=== PATIENT | male | born 1970 | race Native Hawaiian/Other Pacific Islander ===

== ENCOUNTER 2016-11-07 11:33 | Emergency (ER) | payer BC ==
[~2016-11-07] VITALS: Ht 177.8 cm; Wt 97.5 kg
[2016-11-07 11:43] VITALS: TEMP 97.8
[2016-11-07] MEDS ORDERED: PROTONIX20 MG PO (11:47)
[2016-11-07] MEDS ORDERED: BYSTOLIC2.5 MG PO (11:49)
[2016-11-07 12:17] LABS: PLATELET COUNT 272 K/uL (142-355)
[2016-11-07 12:26] LABS: POTASSIUM 3.9 mmol/L (3.6-5.2)
[2016-11-07 12:34] LABS: PARTIAL THROMBOPLASTIN TIME 23.8 SECONDS (24.5-33.6)
[2016-11-07 13:31] VITALS: BP 136/86
== END 2016-11-07 13:33 | disposition home or self-care (01) ==
LOC: ED 11:33
PROVIDERS: Family Medicine
DX: R07.89 Other chest pain (principal); K21.9 Gastro-esophageal reflux disease without esophagitis; R00.1 Bradycardia, unspecified
CPT/HCPCS: 36415; 80053; 82550; 84484; 85027; 85610; 85730; 86318; 93005; 99284

== ENCOUNTER 2016-11-23 07:30 | Outpatient (CLI) | payer BC ==
[~2016-11-23 07:30] MED LIST: BYSTOLIC2.5 MG PO; PROTONIX20 MG PO
== END 2016-11-23 19:12 | disposition home or self-care (01) ==
LOC: NM 07:30
DX: I10 Essential (primary) hypertension (principal); R07.89 Other chest pain
CPT/HCPCS: A9500

== ENCOUNTER 2017-08-15 11:11 | Outpatient (CLI) | payer BC | END 2017-08-15 12:15 | disposition home or self-care (01) | LOC: MRI 11:11 | DX: G51.0 Bell's palsy (principal); R20.0 Anesthesia of skin | CPT/HCPCS: A9576 ==

== ENCOUNTER 2018-05-12 12:20 | Emergency (ER) | payer BC ==
[~2018-05-12] VITALS: Ht 177.8 cm; Wt 99.8 kg
[2018-05-12 12:25] VITALS: TEMP 98
[2018-05-12 13:03] LABS: PLATELET COUNT 493 K/uL (142-355)
[2018-05-12 13:12] LABS: POTASSIUM 3.8 mmol/L (3.6-5.2); SODIUM 140 mmol/L (136-145)
[2018-05-12 14:55] VITALS: BP 80/68
== END 2018-05-12 14:57 | disposition short-term general hospital (02) ==
LOC: ED 12:20
PROVIDERS: Family Medicine
DX: K22.3 Perforation of esophagus (principal); R07.89 Other chest pain; I10 Essential (primary) hypertension; K21.9 Gastro-esophageal reflux disease without esophagitis; K22.2 Esophageal obstruction
CPT/HCPCS: 36415; 80053; 82553; 83880; 84484; 85027; 85379; 93005; 96374; 96375; 99285; J2270

== ENCOUNTER 2018-07-25 07:59 | Outpatient (CLI) | payer BC | END 2018-07-25 21:00 | disposition home or self-care (01) | LOC: RAD 07:59 | DX: R13.14 Dysphagia, pharyngoesophageal phase (principal) ==

== ENCOUNTER 2018-10-06 10:16 | Outpatient (CLI) | payer BC ==
[2018-10-06 13:23] LABS: POTASSIUM 4.1 mmol/L (3.6-5.2); SODIUM 142 mmol/L (136-145)
== END 2018-10-06 22:31 | disposition home or self-care (01) ==
LOC: LABW 10:16 → CT 10:30 → LABW 22:31
PROVIDERS: Nurse Practitioner Family
DX: R10.12 Left upper quadrant pain (principal)
CPT/HCPCS: 36415; 80053; 82150; 82550; 82553; 83690; 84484; Q9963

== ENCOUNTER 2018-12-25 07:48 | Outpatient (CLI) | payer BC | END 2018-12-25 19:20 | disposition home or self-care (01) | LOC: RESP 07:48 | DX: R06.02 Shortness of breath (principal) ==

== ENCOUNTER 2019-02-02 07:46 | Outpatient (CLI) | payer BC | END 2019-02-02 21:34 | disposition home or self-care (01) | LOC: CT 07:46 | DX: R10.9 Unspecified abdominal pain (principal); R06.02 Shortness of breath | CPT/HCPCS: 36415; 82565; 84520; Q9963 ==

== ENCOUNTER 2019-11-09 09:59 | Outpatient (CLI) | payer BC ==
[2019-11-09 11:02] LABS: POTASSIUM 3.9 mmol/L (3.6-5.2)
== END 2019-11-09 20:12 | disposition home or self-care (01) ==
LOC: CT 09:59 → LAB 09:59 → CT 20:12
PROVIDERS: Nurse Practitioner Family
DX: R06.09 Other forms of dyspnea (principal)
CPT/HCPCS: 80053; 83880; 85379; Q9963

== ENCOUNTER 2019-12-03 16:59 | Outpatient (CLI) | payer BC ==
[~2019-12-03 16:59] MED LIST changes: +AMLODIPINE BESYLATE PO; +APIX1TAB PO; +ARMOUR THYROID30 MG PO; +DEXL60CA4 PO; +FAMOTIDINE40 MG PO; +FOLIC ACID800 MCG PO; +SIMV40TA57 PO
[2019-12-03 17:22] LABS: PLATELET COUNT 319 K/uL (142-355)
[2019-12-03 17:38] LABS: POTASSIUM 3.9 mmol/L (3.6-5.2); SODIUM 139 mmol/L (136-145)
== END 2019-12-03 19:19 | disposition home or self-care (01) ==
LOC: LAB 16:59
PROVIDERS: Nurse Practitioner Family
DX: R07.9 Chest pain, unspecified (principal); N17.9 Acute kidney failure, unspecified
CPT/HCPCS: 36415; 80053; 82550; 82553; 84100; 84484; 85027

== ENCOUNTER 2019-12-06 08:47 | Outpatient (CLI) | payer BC | END 2019-12-06 21:57 | disposition home or self-care (01) | LOC: RESP 08:47 | DX: R07.9 Chest pain, unspecified (principal) | CPT/HCPCS: 93306 ==

== ENCOUNTER 2019-12-11 07:52 | Outpatient (CLI) | payer BC | END 2019-12-11 21:09 | disposition home or self-care (01) | LOC: NM 07:52 | DX: R07.9 Chest pain, unspecified (principal) | CPT/HCPCS: A9500 ==

== ENCOUNTER 2020-04-28 07:52 | Outpatient (CLI) | payer BC | END 2020-04-28 22:54 | disposition home or self-care (01) | LOC: RESP 07:52 | DX: R07.9 Chest pain, unspecified (principal); I10 Essential (primary) hypertension ==

== ENCOUNTER 2020-05-02 09:27 | Outpatient (CLI) | payer BC ==
[2020-05-02 09:54] LABS: PLATELET COUNT 265 K/uL (142-355)
[2020-05-02 10:23] LABS: POTASSIUM 4.2 mmol/L (3.6-5.2)
== END 2020-05-02 23:12 | disposition home or self-care (01) ==
LOC: LABW 09:27
DX: R10.9 Unspecified abdominal pain (principal)
CPT/HCPCS: 36415; 80053; 82150; 83690; 85027

== ENCOUNTER 2020-05-06 16:05 | Outpatient (CLI) | payer BC | END 2020-05-06 19:17 | disposition home or self-care (01) | LOC: RAD 16:05 | DX: M54.2 Cervicalgia (principal); M54.6 Pain in thoracic spine; M54.5 Low back pain ==

== ENCOUNTER 2020-05-16 08:19 | Outpatient (CLI) | payer BC | END 2020-05-16 23:24 | disposition home or self-care (01) | LOC: CT 08:19 | DX: R10.9 Unspecified abdominal pain (principal) | CPT/HCPCS: Q9963 ==

== ENCOUNTER 2020-07-11 10:52 | Outpatient (CLI) | payer BC | END 2020-07-11 22:20 | disposition home or self-care (01) | LOC: RAD 10:52 | PROVIDERS: ATTEND Nurse Practitioner | DX: Z01.818 Encounter for other preprocedural examination (principal) ==

== ENCOUNTER 2020-08-20 08:56 | Outpatient (CLI) | payer BC | END 2020-08-20 19:53 | disposition home or self-care (01) | LOC: CT 08:56 | PROVIDERS: ATTEND Specialist | DX: Q79.60 Ehlers-Danlos syndrome, unspecified (principal); R53.83 Other fatigue | CPT/HCPCS: 36415; 82565; 84520 ==

== ENCOUNTER 2020-10-15 07:58 | Outpatient (CLI) | payer BC | END 2020-10-15 20:50 | disposition home or self-care (01) | LOC: CT 07:58 → RESP 09:00 → CT 20:50 | PROVIDERS: ATTEND Internal Medicine Sleep Medicine | DX: J98.4 Other disorders of lung (principal); Q79.60 Ehlers-Danlos syndrome, unspecified; R07.89 Other chest pain; Z98.890 Other specified postprocedural states | CPT/HCPCS: 36415; 82565; 84520; Q9963 ==

== ENCOUNTER 2021-01-15 15:19 | Outpatient (CLI) | payer BC | END 2021-01-15 22:30 | disposition home or self-care (01) | LOC: LABW 15:19 | PROVIDERS: ATTEND Internal Medicine Endocrinology, Diabetes & Metabolism | DX: I10 Essential (primary) hypertension (principal); K21.9 Gastro-esophageal reflux disease without esophagitis; G62.9 Polyneuropathy, unspecified; E78.5 Hyperlipidemia, unspecified; E03.9 Hypothyroidism, unspecified; E53.8 Deficiency of other specified B group vitamins; E88.81 Metabolic syndrome and other insulin resistance | CPT/HCPCS: 36415; 83525; 83735; 84681 ==